=== PATIENT | female | born 1990 | race Caucasian/White ===

== ENCOUNTER 2018-05-21 15:05 | Inpatient (IN) | payer BC ==
[~2018-05-21] VITALS: Ht 157.5 cm; Wt 71.4 kg
[~2018-05-21 15:05] MED LIST: FERRETTS I40 MG/15 M PO; PRENATAL MVI
[2018-05-21 15:45] VITALS: BP 119/70; PULSE 86; TEMP 98.1
[2018-05-21 16:09] VITALS: BP 119/70; PULSE 86; TEMP 98.1
[2018-05-21 16:22] LABS: BASO % 0.3 % (0.0-2.0); EOS # 0.4 (0.0-0.7); EOS % 3.1 % (0-4.0); GRAN # 8.7 (1.4-6.5); GRAN % 69.4 % (42.2-75.2); HEMOGLOBIN 12.6 g/dl (12.5-16.0); LYMPH # 2.2 (1.2-3.4); LYMPH % 17.8 % (20.0-51.0); MEAN CELL VOLUME 91 fl (80.0-100.0); MEAN CORPUSCULAR HEMOGLOBIN 33 pg (27.0-31.0); MEAN CORPUSCULAR HGB CONC 36 g/dl (33.0-37.0); MEAN PLATELET VOLUME 10.5 fl (7.4-10.4); MONO % 7.6 % (1.7-9.3); PLATELET COUNT 151 K/mm3 (130-400); RED BLOOD COUNT 3.88 M/mm3 (4.10-5.30); REDCELL DISTRIBUTION WIDTH-CV 13.5 % (11.5-14.5)
[2018-05-21 16:26] LABS: HEMATOCRIT 35.1 % (37.0-47.0)
[2018-05-21 16:45] VITALS: PULSE 76
--- NOTE | 2018-05-21 16:59 | NUR ---
1550 PATIENT HERE FOR REPEAT C SECTION PER DR PORTILLO ORDER. BABY A LEFT LOWER QUAD FHT 120 GOOD ACCELERATIONS NOTED AND BABY VERY ACTIVE. TWIN B RIGHT UPPER QUAD FHT 135 GOOD ACCELERATIONS NOTED AND BABY VERY ACTIVE. NO CONTRACTIONS AT THIS TIME OR ON MONITOR. ASSESSMENT COMPLETED AND IV STARTED IN LEFT HAND. LR 1000CC HUNG. CONSENTS SIGNED, PATIENT READY FOR OR. PATIENT ATE FULL MEAL AT 1330. RADHA AND ONROSS YRAN. Tomy SANABRIA CRNA CALLED AND UPDATED ON ABOVE INFORMATION. ORDERS PEPCID 20 MG IV AND REGLAN 10 MG IV NOW. MEDS ORDERED GIVEN BY THIS NURSE [id number].
--- NOTE | 2018-05-21 17:25 | NUR ---
PATIENT UP TO BATHROOM, STATES FEELS WET. AMNIOTRACE NEGATIVE. PATIENT DOES NOT FEEL CONTRACTION AND NONE ON MONITOR.
[2018-05-21 17:29] VITALS: BP 117/65; PULSE 83
--- NOTE | 2018-05-21 17:31 | NUR ---
1730 DR PORTILLO AT BEDSIDE TO EVALUATER MONITOR STRIP. READY FOR OR, SURGERY PLANNED FOR 1899.
[2018-05-21 18:13] VITALS: BP 117/65; PULSE 83
--- NOTE | 2018-05-21 20:00 | NUR ---
IV removed per patient request. Patient ambulatory to room 209.
[2018-05-21 23:00] VITALS: BP 104/51; PULSE 84; TEMP 98
[2018-05-22] VITALS (17 sets, daily range): BP systolic 102–129; BP diastolic 34–78; PULSE 62–80; TEMP 98–98.4
[2018-05-23 01:45] VITALS: BP 104/58; PULSE 72; TEMP 98.3
[2018-05-23 07:41] VITALS: BP 107/61; PULSE 71; TEMP 98.6
--- NOTE | 2018-05-23 10:05 | NUR ---
Initial visit; Parents thanked [employer] for offering congratulations and God's blessings for the of their twin daughters. [employer] thanked them for choosing [facility].
[2018-05-23 15:42] VITALS: BP 113/66; PULSE 79
[2018-05-23 21:30] VITALS: BP 116/60; PULSE 72; TEMP 98.1
[2018-05-24 07:45] VITALS: BP 106/64; PULSE 75; TEMP 97.8
[2018-05-24 16:30] VITALS: BP 127/69; PULSE 88; TEMP 98.3
--- NOTE | 2018-05-24 18:10 | NUR ---
BEDSIDE REPORT RECEIVED FROM OFF GOING CHRISTAL SHEPPARD. CARE TAKEN OVER BY THIS RN.
--- NOTE | 2018-05-24 18:43 | NUR ---
D/c board updated, POC for night discussed.
[2018-05-24 20:52] VITALS: BP 117/60; PULSE 88; TEMP 98.1
[2018-05-25 08:15] VITALS: BP 117/73; PULSE 83; TEMP 98.6
[2018-05-25] MEDS ORDERED: IBU600 MG PO (11:44)
[2018-05-25] MEDS ORDERED: PERCOCET 325 MG1 TA2 PO (11:44)
--- NOTE | 2018-05-25 15:00 | NUR ---
Patient discharge instructions reviewed with her and . Script for percocet given and explained. Patient verbalizes understanding and escorted out to vehicle.
== END 2018-05-25 15:20 | disposition home or self-care (01) | DRG 786 ==
LOC: LDR 15:05 → OB 15:31
PROVIDERS: ADMIT Obstetrics & Gynecology
PROC: 10D00Z1 Extraction of Products of Conception, Low, Open Approach (ICD-10-PCS; principal; 2018-05-21)
DX: O34.211 Maternal care for low transverse scar from previous cesarean delivery (principal); O60.14X2 Preterm labor third trimester with preterm delivery third trimester, fetus 2; O60.14X1 Preterm labor third trimester with preterm delivery third trimester, fetus 1; O30.043 Twin pregnancy, dichorionic/diamniotic, third trimester; Z3A.35 35 weeks gestation of pregnancy; Z37.2 Twins, both liveborn
CPT/HCPCS: J0690; J1885; J2270; J2370; J2405; J2590; J2765; J7120

== ENCOUNTER 2021-07-19 17:01 | Outpatient (CLI) | payer BC ==
[~2021-07-19] VITALS: Ht 157.5 cm; Wt 66.4 kg
[~2021-07-19 17:01] MED LIST changes: +IBU600 MG PO; +PERCOCET 325 MG1 TA2 PO
[2021-07-19 17:37] VITALS: BP 103/64; PULSE 69; TEMP 98.3
--- NOTE | 2021-07-19 17:41 | NUR ---
1640 PATIENT HERE FOR COMPLAINTS OF CONTRACTIONS. ASSESSMENT COMPLETED. SVE /-3 BALLOTABLE. EFM ON FHT [address] PORTILLO AT BEDSIDE TO TALK WITH PATIENT. IVF ORDERED. IV STARTED IN LEFT WRIST LR BOLUS STARTED A THIS TIME. WILL RECHECK IN HOUR AND CALL DR PORTILLO WITH UPDATE.
[2021-07-19 18:15] VITALS: BP 113/63; PULSE 75
[2021-07-22] MEDS ORDERED: ROXICODONE 55 MG/TAB PO (08:54)
[2021-07-22] MEDS ORDERED: IBU600 MG PO (08:54)
== END 2021-07-19 18:50 | disposition home or self-care (01) ==
LOC: LDRO 17:01
DX: O47.1 False labor at or after 37 completed weeks of gestation (principal); Z3A.37 37 weeks gestation of pregnancy
CPT/HCPCS: J7120